=== PATIENT | female | born 2005 | race Caucasian/White ===

== ENCOUNTER 2025-09-30 13:06 | Emergency (ER) | payer OTHER ==
[~2025-09-30] VITALS: Ht 165.1 cm; Wt 67.2 kg
[2025-09-30] MEDS: ACETAMINOPHEN *IV* 1,000 MG in IV 1 EA IV ONE (14:03)
[2025-09-30 14:40] LABS: HCG, SERUM QUALITATIVE NEGATIVE (NEGATIVE)
[2025-09-30] MEDS ORDERED: IBUP1TAB5 PO (15:46)
[2025-09-30 16:09] VITALS: BP 97/51; TEMP 99; O2SAT 99
== END 2025-09-30 16:11 | disposition home or self-care (01) ==
LOC: EDBD 13:06 → M ED 13:06
DX: N94.6 Dysmenorrhea, unspecified (principal); N85.4 Malposition of uterus
CPT/HCPCS: 84703; 96374; 99284; J0134